=== PATIENT | female | born 1955 | race Caucasian/White ===

== ENCOUNTER → 2020-04-09 09:51 | Outpatient (BNVA) | payer OTHER, SELFPAY | PROVIDERS: Family Provider Student in an Organized Health Care Education/Training Program; PCP Student in an Organized Health Care Education/Training Program; Visit Provider Nurse Practitioner Women's Health | DX: R82.90 Unspecified abnormal findings in urine (principal) | CPT/HCPCS: 81000 ==

== ENCOUNTER → 2020-05-05 16:02 | Outpatient (BNVA) | payer OTHER, SELFPAY | PROVIDERS: Family Provider Student in an Organized Health Care Education/Training Program; PCP Student in an Organized Health Care Education/Training Program; Visit Provider Obstetrics & Gynecology | DX: N95.0 Postmenopausal bleeding (principal) | CPT/HCPCS: 76830 ==

== ENCOUNTER → 2020-05-07 15:55 | Outpatient (BNVA) | payer OTHER, SELFPAY | PROVIDERS: Family Provider Student in an Organized Health Care Education/Training Program; PCP Student in an Organized Health Care Education/Training Program; Visit Provider Obstetrics & Gynecology | DX: N95.0 Postmenopausal bleeding (principal); R82.90 Unspecified abnormal findings in urine | CPT/HCPCS: 87077; 87086; 87184; 88305 ==

== ENCOUNTER → 2020-06-18 10:49 | Outpatient (BNVA) | payer OTHER, SELFPAY | PROVIDERS: Family Provider Student in an Organized Health Care Education/Training Program; PCP Student in an Organized Health Care Education/Training Program; Visit Provider Nurse Practitioner Women's Health | DX: R82.90 Unspecified abnormal findings in urine (principal) | CPT/HCPCS: 81000; 87077; 87086; 87184 ==

== ENCOUNTER → 2021-04-15 09:27 | Outpatient (BNVA) | payer OTHER, SELFPAY | PROVIDERS: Family Provider Student in an Organized Health Care Education/Training Program; PCP Student in an Organized Health Care Education/Training Program; Visit Provider Nurse Practitioner Women's Health | DX: Z01.419 Encounter for gynecological examination (general) (routine) without abnormal findings (principal); G47.00 Insomnia, unspecified | CPT/HCPCS: 87624 ==

== ENCOUNTER → 2021-11-14 10:27 | Outpatient (BNVA) | payer OTHER, SELFPAY | PROVIDERS: Family Provider Student in an Organized Health Care Education/Training Program; PCP Student in an Organized Health Care Education/Training Program; Referring Provider Emergency Medicine; Visit Provider Emergency Medicine | DX: N39.0 Urinary tract infection, site not specified (principal) | CPT/HCPCS: 81000 ==

== ENCOUNTER → 2022-05-05 13:54 | Outpatient (BNVA) | payer MEDICARE, SELFPAY | PROVIDERS: Family Provider Student in an Organized Health Care Education/Training Program; PCP Student in an Organized Health Care Education/Training Program; Visit Provider Emergency Medicine | DX: N30.01 Acute cystitis with hematuria (principal) | CPT/HCPCS: 81000; 87086 ==

== ENCOUNTER → 2022-05-12 14:58 | Outpatient (BNVA) | payer OTHER, SELFPAY | PROVIDERS: Visit Provider Nurse Practitioner Women's Health | DX: R39.15 Urgency of urination (principal); R30.0 Dysuria; G47.00 Insomnia, unspecified; N89.8 Other specified noninflammatory disorders of vagina; Z01.419 Encounter for gynecological examination (general) (routine) without abnormal findings; N30.20 Other chronic cystitis without hematuria | CPT/HCPCS: 81000; 87086; 87624 ==

== ENCOUNTER → 2022-12-08 09:06 | Outpatient (BNVA) | payer OTHER, SELFPAY | PROVIDERS: PCP Family Medicine; Visit Provider Family Medicine | DX: Z00.00 Encounter for general adult medical examination without abnormal findings (principal); I10 Essential (primary) hypertension | CPT/HCPCS: 80053; 80061; 84439; 84443; 85025 ==

== ENCOUNTER 2023-01-12 13:25 | Outpatient (CLI) | payer OTHER, SELFPAY ==
--- NOTE | 2023-01-12 13:29 | MM_ITS ---
WS: [id number] BILATERAL 3D TOMOSYNTHESIS DIGITAL SCREENING MAMMOGRAPHY WITH CAD CLINICAL INFORMATION: Z12.39 - Encounter for other screening for malignant neop... HISTORY: Screening mammogram. No current complaints. COMPARISON: 2021 TECHNIQUE: Bilateral CC and MLO views. FINDINGS: Scattered fibroglandular densities bilaterally. No suspicious focal mass, asymmetry, calcifications, or architectural distortion. No evidence of malignancy. Incidental punctate and lucent centered calci fications IMPRESSION: MM/[place] [id number] BI-RADS: 2-Benign FOLLOW UP: 1 Year Follow-up Recommend return to annual screening mammography.
== END 2023-01-12 13:26 | disposition home or self-care (01) ==
LOC: RAD 13:26 → MOBLMAM 13:28
PROVIDERS: PCP Family Medicine; Visit Provider Nurse Practitioner Women's Health
DX: Z12.31 Encounter for screening mammogram for malignant neoplasm of breast (principal)
CPT/HCPCS: 77063; 77067

== ENCOUNTER 2023-07-13 13:30 | Outpatient (CLI) | payer MEDICARE, SELFPAY ==
--- NOTE | 2023-07-13 14:00 | XR_ITS ---
WS: [id number] DEXA (DUAL ENERGY X-RAY ABSORPTIOMETRY) Bone mineral density was performed using a [employer] machine. HISTORY: Z78.0 - Asymptomatic menopausal state COMPARISON: None available. Lumbar spine BMD (L1-L4): 1.428 g/cm2 T score: 2.1 Z score: 3.5 Total hip BMD: Left: 0.803 g/cm2. T score: -1.6 Z score: -0.5 Right: 0.770 g/cm2. T score: -1.9 Z score: -0.8 10 year probability of a major osteoporotic fracture is 11.5% IMPRESSION: OSTEOPENIA based upon the WHO classification for females.
== END 2023-07-13 13:31 | disposition home or self-care (01) ==
LOC: RAD 13:31
PROVIDERS: PCP Family Medicine; Visit Provider Nurse Practitioner Women's Health
DX: Z78.0 Asymptomatic menopausal state (principal); Z13.820 Encounter for screening for osteoporosis; M85.80 Other specified disorders of bone density and structure, unspecified site
CPT/HCPCS: 77080; 80053

== ENCOUNTER → 2023-07-20 10:21 | Outpatient (BNVA) | payer MEDICARE, SELFPAY | PROVIDERS: PCP Family Medicine; Referring Provider Family Medicine; Visit Provider Surgery | DX: Z12.11 Encounter for screening for malignant neoplasm of colon (principal); Z80.0 Family history of malignant neoplasm of digestive organs | CPT/HCPCS: 99024; 99204 ==

== ENCOUNTER 2023-09-12 06:27 | Day surgery (SDC) | payer MEDICARE, SELFPAY ==
[2023-09-12 06:44] VITALS: BP 116/71; PULSE 99; RESP 18; TEMP 36.7; O2SAT 99; BMI 26.2
[2023-09-12] MEDS: sodium chloride 0.9% 1,000 ML 30 ML IV (06:48)
--- NOTE | 2023-09-12 06:56 | ANES.PREANE2 ---
Pre-Anesthetic Assessment Height/Weight: Height 1.6 m Weight 67.132 kg Temp Pulse Resp BP Pulse Ox O2 Del Method 98.1 F 99 18 116/71 99 Room Air 09/12/23 06:44 09/12/23 06:44 09/12/23 06:44 09/12/23 06:44 09/12/23 06:44 09/12/23 06:44 Preop Diagnosis: screening Operation Date: 09/12/23 07:30 Proposed Procedures p [id number] colonoscopy G0105 screen colon h risk Z12.11 Z80.0(Not Applicable) - Mauricio Stack DO Familial anesthetic complications: None Was Beta Christa taken within 24 hours: N/A Was Clonidine taken within 24 hours: N/A Last intake: Intake Last Liquid Date 09/11/23 Last Liquid Time 19:30 Last Solid Date 09/10/23 Last Solid Time 18:00 Social No alcohol and No tobacco Exam alert, oriented x 3 and regular rate & rhythm Airway Submandibular: within normal limits Mallampati: Class II Dentition: false History/ROS No significant history except as noted Pulmonary None reported CV/HEM Hypertension CKD stage 3 Hepatic None reported GI None reported Metabolic None reported Musc/skel None reported Neuropsych None reported Anesthetic Plan ASA status: 2 Anesthesia: Anesthesia Evaluation and MAC Risk of > 500 ml blood loss (7ml/kg in children): No Medications/Allergies Home Medications Medication Instructions Recorded Confirmed Last Taken Type multivitamin,ts-pdrt-aefhhinm 1 tab PO DAILY 04/09/20 09/10/23 09/11/23 History (Complete Multivitamin tablet) glucosamine NJl-P8-Rucqiwivr 1 tab PO DAILY 11/14/21 09/10/23 09/11/23 History ronel 1,500 mg-400 unit-100 mg tablet (Osteo Bi-Flex (5-Loxin)) calcium carbonate 500 mg calcium 500 mg PO DAILY 05/12/22 09/10/23 09/11/23 History (1,250 mg) chewable tablet (Calcium 500) estradiol 10 mcg vaginal tablet See Rx Instructions .Route 06/19/23 09/10/23 09/11/23 Rx (Yuvafem) .COMPLEX #24 tabs losartan 100 mg tablet 100 mg PO DAILY #90 tabs 07/13/23 09/10/23 09/11/23 Rx amitriptyline 10 mg tablet 20 mg PO BEDTIME 09/10/23 09/10/23 09/11/23 History amlodipine 10 mg tablet 10 mg PO BEDTIME 09/10/23 09/10/23 09/11/23 History coenzyme Q10 100 mg capsule (Co 100 mg PO DAILY 09/10/23 09/10/23 09/11/23 History Q-10) cyanocobalamin (vitamin B-12) 5,000 mcg sublingual DAILY 09/10/23 09/10/23 09/11/23 History 5,000 mcg sublingual tablet (Vitamin B-12) melatonin 5 mg tablet 10 mg PO BEDTIME 09/10/23 09/10/23 09/11/23 History meloxicam 15 mg tablet 15 mg PO DAILY 09/10/23 09/10/23 09/11/23 History Allergies Allergy/AdvReac Type Severity Reaction Status Date / Time No Known Allergies Allergy Verified 08/08/23 17:20 PFSH Anesthesia Medical History Family history of colon cancer No pertinent past medical history neghx:dm,thyroid,dvt/pe PCP: Alin Essential hypertension Insomnia PMB (postmenopausal bleeding) (~2017) Arthritis Surgical History Hx of tubal ligation (~1989) Hx of neck surgery disc surgery Family History Mother Diabetes Heart disease Hypertension Chronic kidney disease (CKD) Father Diabetes Heart disease Sister Diabetes Heart disease Brother Colon cancer dx age 60 Other CAD (coronary artery disease) Dementia Denies family history of Ovarian cancer Clotting disorder Psychiatric illness Breast cancer Anesthesia complication Bleeding disorder Lung disease Uterine cancer Thyroid disease Stroke Female Reproductive History Spontaneous abortions: No Data Anesthesia Cardiac Studies: No Data to Display
--- NOTE | 2023-09-12 07:17 | P.HP_ITS ---
Providers/Chief Complaint 2 Primary Care Provider: Juan Ogden MD Chief Complaint: Z12.11, Z80.0 History of Present Illness Chika Enriquez is a 68 year old female Review of Systems 2 General: Reports: 10 or more systems reviewed and unremarkable except in HPI and below Medications/Allergies Home Medications Medication Instructions Recorded Confirmed Last Taken Type multivitamin,ud-ylue-dhzgzyki 1 tab PO DAILY 04/09/20 09/10/23 09/11/23 History (Complete Multivitamin tablet) glucosamine RHt-F9-Ledcdoqkn 1 tab PO DAILY 11/14/21 09/10/23 09/11/23 History ronel 1,500 mg-400 unit-100 mg tablet (Osteo Bi-Flex (5-Loxin)) calcium carbonate 500 mg calcium 500 mg PO DAILY 05/12/22 09/10/23 09/11/23 History (1,250 mg) chewable tablet (Calcium 500) estradiol 10 mcg vaginal tablet See Rx Instructions .Route 06/19/23 09/10/23 09/11/23 Rx (Mayfearaceli) .COMPLEX #24 tabs losartan 100 mg tablet 100 mg PO DAILY #90 tabs 07/13/23 09/10/23 09/11/23 Rx amitriptyline 10 mg tablet 20 mg PO BEDTIME 09/10/23 09/10/23 09/11/23 History amlodipine 10 mg tablet 10 mg PO BEDTIME 09/10/23 09/10/23 09/11/23 History coenzyme Q10 100 mg capsule (Co 100 mg PO DAILY 09/10/23 09/10/23 09/11/23 History Q-10) cyanocobalamin (vitamin B-12) 5,000 mcg sublingual DAILY 09/10/23 09/10/23 09/11/23 History 5,000 mcg sublingual tablet (Vitamin B-12) melatonin 5 mg tablet 10 mg PO BEDTIME 09/10/23 09/10/23 09/11/23 History meloxicam 15 mg tablet 15 mg PO DAILY 09/10/23 09/10/23 09/11/23 History Allergies Allergy/AdvReac Type Severity Reaction Status Date / Time No Known Allergies Allergy Verified 08/08/23 17:20 PFSH Acute 2 PFSH: Medical History Family history of colon cancer No pertinent past medical history neghx:dm,thyroid,dvt/pe PCP: Alin Essential hypertension Insomnia PMB (postmenopausal bleeding) (~2017) Arthritis Surgical History Hx of tubal ligation (~1989) Hx of neck surgery disc surgery Family History Mother Diabetes Heart disease Hypertension Chronic kidney disease (CKD) Father Diabetes Heart disease Sister Diabetes Heart disease Brother Colon cancer dx age 60 Other CAD (coronary artery disease) Dementia Denies family history of Ovarian cancer Clotting disorder Psychiatric illness Breast cancer Anesthesia complication Bleeding disorder Lung disease Uterine cancer Thyroid disease Stroke Female Reproductive History: Spontaneous abortions: No Vitals/I&O/Wt Last Vital Signs Temp 98.1 F 09/12/23 06:44 Pulse 99 09/12/23 06:44 Resp 18 09/12/23 06:44 BP 116/71 09/12/23 06:44 Pulse Ox 99 09/12/23 06:44 O2 Del Method Room Air 09/12/23 06:44 Weight last 48 hrs Weight 148 lb Data 09/12/23 07:05 A&P Assessment and plan (1) Encounter for screening for malignant neoplasm of colon: (2) Family history of colon cancer: Plan Colonoscopy Attestations 2 Medical Necessity Statement*: Home Coding Level of Care Code Acute Code for Chg Fwd Diagnoses Encounter for screening for malignant neoplasm of colon Z12.11 Family history of colon cancer Z80.0
[2023-09-12 08:37] VITALS: BP 126/74; PULSE 90; RESP 14; TEMP 36.4; O2SAT 95
[2023-09-12 08:49] VITALS: BP 136/72; PULSE 98; RESP 16; O2SAT 91
[2023-09-12 09:26] VITALS: BP 122/74; PULSE 99; RESP 18; O2SAT 94
--- NOTE | 2023-09-12 15:23 | ANE.PACU2 ---
Inpatient post-anesthesia follow up: Airway intact: Yes Vital signs: Temperature 97.5 F Pulse Rate 99 Respiratory Rate 18 Blood Pressure 122/74 Pulse Oximetry 94 Oxygen Delivery Me thod Room Air Oxygen Flow Rate 1 Fraction of Inspir ed Oxygen Hydration adequate: Yes Nausea and vomiting: No Pain level: 2 Mental status: Baseline
== END 2023-09-12 09:32 | disposition home or self-care (01) ==
PROVIDERS: Anesthesiology; PCP Family Medicine; Visit Provider Surgery
PROC: 0DJD8ZZ Inspection of Lower Intestinal Tract, Via Natural or Artificial Opening Endoscopic (ICD-10-PCS; CPT 45378; principal; 2023-09-12 07:30)
DX: Z12.11 Encounter for screening for malignant neoplasm of colon (principal); Z80.0 Family history of malignant neoplasm of digestive organs; D12.4 Benign neoplasm of descending colon; M19.90 Unspecified osteoarthritis, unspecified site; I12.9 Hypertensive chronic kidney disease with stage 1 through stage 4 chronic kidney disease, or unspecified chronic kidney disease; N18.30 Chronic kidney disease, stage 3 unspecified
CPT/HCPCS: 45385; 84132; 88305; J2704; J7030

== ENCOUNTER → 2023-09-24 08:09 | Outpatient (BNVA) | payer MEDICARE, SELFPAY | PROVIDERS: PCP Family Medicine; Visit Provider Surgery | DX: Z09 Encounter for follow-up examination after completed treatment for conditions other than malignant neoplasm (principal); D37.4 Neoplasm of uncertain behavior of colon | CPT/HCPCS: 99214 ==

== ENCOUNTER 2024-01-17 13:46 | Outpatient (CLI) | payer MEDICARE, SELFPAY ==
--- NOTE | 2024-01-17 13:48 | MM_ITS ---
WS: [id number] BILATERAL SCREENING DIGITAL TOMOSYNTHESIS MAMMOGRAM WITH CAD HISTORY: SCREENING COMPARISON: 01/12/2023, 01/27/2022 Bilateral CC and MLO views with tomosynthesis and synthetic mammography submitted. Computer aided det ection analyzed. Breast composition: There are scattered areas of fibroglandular density. No suspicious masses, microc alcifications or architectural distortion. Benign calcifications in each breast. MM/[place] [id number] IMPRESSION: BI-RADS: 2-Benign FOLLOW UP: 1 Year Follow-up
== END 2024-01-17 13:47 | disposition home or self-care (01) ==
LOC: RAD 13:47
PROVIDERS: PCP Family Medicine; Visit Provider Family Medicine
DX: Z12.31 Encounter for screening mammogram for malignant neoplasm of breast (principal)
CPT/HCPCS: 77063; 77067; 80053; 80061; 85025

== ENCOUNTER → 2024-07-24 13:15 | Outpatient (BNVA) | payer OTHER, SELFPAY | PROVIDERS: PCP Family Medicine; Visit Provider Nurse Practitioner Women's Health | DX: N95.8 Other specified menopausal and perimenopausal disorders (principal); N18.31 Chronic kidney disease, stage 3a | CPT/HCPCS: 82306; 84443 ==

== ENCOUNTER → 2024-10-03 14:37 | Outpatient (BNVA) | payer MEDICARE, SELFPAY | PROVIDERS: PCP Family Medicine; Visit Provider Family Medicine | DX: N18.31 Chronic kidney disease, stage 3a (principal) | CPT/HCPCS: 80048 ==

== ENCOUNTER 2024-12-08 14:19 | Outpatient (CLI) | payer MEDICARE, SELFPAY ==
--- NOTE | 2024-12-08 14:30 | USR_ITS ---
PROCEDURE INFORMATION: Exam: US Right Limited Joint or Other Non-Vascular Extremity Structure Exam date and time: 12/08/2024 2:57 PM Age: 69 years old Clinical indication: Condition or disease; Other: Cyst R foot TECHNIQUE: Imaging protocol: US right limited joint or other nonvascular extremity structure. Real-time ultrasound with image documentation. Exam focused on the area of clinical interest. COMPARISON: US transvaginal [id number] 05/05/2020 4:05 PM FINDINGS: Soft tissues: There is a well-defined cyst with a thin wall and anechoic contents located in the midfoot dorsal to the 3rd and 4th metatarsals measuring 9 x 7 x 3 mm. The relationship of the cyst to the tendon sheaths is not clear. Tendons are poorly visualized. US/US soft tissue/extremity [id number] IMPRESSION: Dorsal ganglion cyst in the midfoot measuring up to 9 mm.
== END 2024-12-08 14:20 | disposition home or self-care (01) ==
PROVIDERS: PCP Family Medicine; Visit Provider Family Medicine
DX: M67.471 Ganglion, right ankle and foot (principal)
CPT/HCPCS: 76882

== ENCOUNTER 2025-01-19 09:39 | Outpatient (CLI) | payer MEDICARE, SELFPAY ==
--- NOTE | 2025-01-19 10:00 | MM_ITS ---
WS: [id number] Bilateral screening 3D tomosynthesis digital mammogram, 01/19/2025 9:50 AM Clinical Data: screening Comparison: 01/17/2024, 01/12/2023, 01/27/2022, 07/23/2017, 07/17/2016, 07/03/2016, 07/02/2015. Findings: No spiculated masses or clustered calcifications are seen. There are no secondary signs of carcinoma. MM/MM scr BI tomosynthesis [id number] Impression: Negative bilateral mammogram unchanged. Recommend annual screening mammograms. BIRADS: 1 - Negative. FOLLOW UP: 1 Year Follow-up DENSITY: There are scattered areas of fibroglandular density. The CAD supervisor [employer] was used
== END 2025-01-19 09:40 | disposition home or self-care (01) ==
LOC: RAD 09:40
PROVIDERS: PCP Family Medicine; Visit Provider Family Medicine
DX: Z12.31 Encounter for screening mammogram for malignant neoplasm of breast (principal)
CPT/HCPCS: 77063; 77067